=== PATIENT | female | born 1970 | race African-American/Black ===

== ENCOUNTER 2023-10-14 14:38 | Emergency (ER) | payer MEDICAID ==
[~2023-10-14] VITALS: Ht 160 cm; Wt 105.0 kg
[~2023-10-14 14:38] MED LIST: DOXY100C5 PO; IBUP-779 PO; LABE200T9; METH PO; PRENATAL VIT
[2023-10-14 15:13] VITALS: O2SAT 100
[2023-10-14] MEDS ORDERED: KETOROLAC 30MG/ML VIAL IM ONE (17:15)
[2023-10-14] MEDS ORDERED: NAPR-1176 MT (17:26)
[2023-10-14] MEDS ORDERED: CYCL5TAB MT (17:26)
[2023-10-14] MEDS ORDERED: LIDO700A15 TP (17:26)
[2023-10-14 17:55] VITALS: BP 118/52; PULSE 71; RESP 16; TEMP 98.7
== END 2023-10-14 17:56 | disposition home or self-care (01) ==
LOC: ER 14:38
DX: M54.50 Low back pain, unspecified (principal); F32.9 Major depressive disorder, single episode, unspecified; I10 Essential (primary) hypertension; Z90.710 Acquired absence of both cervix and uterus; Z79.899 Other long term (current) drug therapy
CPT/HCPCS: 96372; 99283; J1885; Z7610